=== PATIENT | female | born 1970 | race African-American/Black ===

== ENCOUNTER 2016-11-07 20:16 | Emergency (ER) | payer OTHER ==
[~2016-11-07] VITALS: Ht 167.6 cm; Wt 69.8 kg
[~2016-11-07 20:16] MED LIST: ACULAR 0.5% EYE5 ML OP; ALLEGRA180 MG PO; CIPROFLOXACIN500 M1 PO; FLAGYL500 MG PO; FLEXERIL PO; IBUPROFEN 800800 MG PO; INVEGA9 MG PO; NORCO 5-325 TA1 EACH PO; SIMVASTATIN40 MG PO; ZOFRAN ODT4 MG PO
[2016-11-07 21:38] LABS: URINE BILIRUBIN NEGATIVE (Negative); URINE BLOOD TRACE (Negative); URINE COLOR YELLOW; URINE GLUCOSE-RANDOM* NEGATIVE (Negative); URINE KETONES NEGATIVE (Negative); URINE LEUKOCYTES-REFLEX NEGATIVE (Negative); URINE PROTEIN (DIPSTICK) NEGATIVE (Negative); URINE SPECIFIC GRAVITY 1.015 (1.003-1.035); URINE UROBILINOGEN 0.2 E.U./dl (0.2-1.0)
[2016-11-07 22:07] LABS: BASOPHILS 0.6 % (0.0-2.0); EOSINOPHILS 0.6 % (0.0-3.0); HEMOGLOBIN 12.5 gm/dL (12.0-15.0); MCHC 32.8 g/dL (28.0-37.0); MCV 85.4 fL (80.0-100.0); MONOCYTES 8.7 % (1.0-8.0); PLATELET COUNT 199 thou/uL (150-400); POLYS 78.1 % (36.0-66.0); RBC 4.45 mil/uL (4.20-5.00); RDW 12.2 % (10.5-14.5); WBC 7.6 thou/uL (4.0-11.0)
[2016-11-07 22:15] LABS: MANUAL DIFF NO
[2016-11-07 22:17] LABS: CALCIUM 9.1 mg/dL (8.5-10.1); CREATININE 1.1 mg/dL (0.6-1.0); POTASSIUM 3.6 mmol/L (3.5-5.1)
[2016-11-07 22:22] LABS: ALBUMIN 3.7 g/dL (3.4-5.0); TOTAL BILIRUBIN 0.5 mg/dL (<0.1-1.0); TOTAL PROTEIN 7.8 g/dL (6.4-8.2)
[2016-11-07] MEDS ORDERED: FLAGYL500 MG PO (23:56)
[2016-11-07] MEDS ORDERED: CIPROFLOXACIN500 M1 PO (23:56)
[2016-11-08] MEDS ORDERED: ZOFRAN ODT4 MG PO (00:14)
[2016-11-08] MEDS ORDERED: TRAMADOL 50 MG50 MG PO (00:14)
[2016-11-08 03:03] VITALS: BP 102/72
== END 2016-11-08 03:06 | disposition home or self-care (01) ==
LOC: ER 20:16
PROVIDERS: Emergency Medicine
DX: K57.92 Diverticulitis of intestine, part unspecified, without perforation or abscess without bleeding (principal); F20.9 Schizophrenia, unspecified; E78.00 Pure hypercholesterolemia, unspecified

== ENCOUNTER 2017-08-31 21:45 | Emergency (ER) | payer OTHER ==
[~2017-08-31] VITALS: Ht 167.6 cm; Wt 74.4 kg
--- NOTE | ~2017-08-31 | EKG ---
[place] [address] [employer] [place] [address] ELECTROCARDIOGRAM REPORT Name: ROJELIO MCINTOSHCHRISTIAN Lindsey Room #: [facility]#: [id number] Admission: 08/31/17 Attend Phys: Discharge: 09/01/17 Date of : 66 Report #: [id number] THIS REPORT FOR: //name// [facility] ED Test Date: 2017-08-31 Test Time: 22:10:40 Pat Name: HERACLIO MCINTOSH Department: Room: Gender: F [employer]: clifford santos : 1970 Requested By: Samantha Mahoney Order Number: [id number] MD: Sander Horton Measurements Intervals [place] Rate: 60 P: 27 FL: 192 QRS: 44 QRSD: 76 T: 42 QT: 395 QTc: 395 Interpretive Statements Sinus rhythm Low voltage, precordial leads Compared to ECG 01/29/2016 20:08:47 Low QRS voltage now present Electronically Signed On 09-01-2017 11:06:22 CDT by Sander Horton [email or web address] <ELECTRONICALLY SIGNED> By: Sander Horton MD 09/01/17 1106 2210 2210 Sander Horton MD /BRIANNA
[~2017-08-31 21:45] MED LIST changes: +TRAMADOL 50 MG50 MG PO
[2017-08-31 23:17] LABS: ABSOLUTE NEUTROPHILS 2.1 thou/uL (1.4-8.2); BASOPHILS 0.6 % (0.0-2.0); EOSINOPHILS 2.7 % (0.0-3.0); HEMATOCRIT 35.4 % (37.0-47.0); HEMOGLOBIN 11.8 gm/dL (12.0-15.0); LYMPHOCYTES 36.7 % (24.0-44.0); MCH 28.4 pg (26.0-34.0); MCHC 33.5 g/dL (28.0-37.0); MCV 84.9 fL (80.0-100.0); MONOCYTES 8.4 % (1.0-8.0); PLATELET COUNT 209 thou/uL (150-400); POLYS 51.6 % (36.0-66.0); RBC 4.17 mil/uL (4.20-5.00); RDW 12.4 % (10.5-14.5); WBC 4.1 thou/uL (4.0-11.0)
[2017-08-31 23:18] LABS: ANION GAP 7 mmol/L (7-16); BUN 15 mg/dL (7-18); CALCIUM 8.5 mg/dL (8.5-10.1); CHLORIDE 104 mmol/L (98-107); CO2 27 mmol/L (21-32); GLUCOSE 162 mg/dL (74-106); POTASSIUM 3.4 mmol/L (3.5-5.1); SODIUM 138 mmol/L (136-145)
[2017-08-31 23:28] LABS: TROPONIN-I <0.06 ng/mL (<0.06)
[2017-09-01 00:38] VITALS: BP 127/87
== END 2017-09-01 00:39 | disposition home or self-care (01) ==
LOC: ER 21:45
PROVIDERS: Emergency Medicine
DX: R07.9 Chest pain, unspecified (principal); E78.5 Hyperlipidemia, unspecified; E78.00 Pure hypercholesterolemia, unspecified